=== PATIENT | female | born 1940 | race Caucasian/White ===

== ENCOUNTER 2018-12-19 19:41 | Emergency (ER) | payer MEDICARE, OTHER ==
[2018-12-19] MEDS ORDERED: Sodium Chloride 0.9% 10 ML Syringe FLUSH PRN (19:59)
[2018-12-19] MEDS ORDERED: Sodium Chloride 0.9% 2.5 ML Syringe FLUSH PRN (19:59)
[2018-12-19] MEDS ORDERED: Nitroglycerin 0.4 MG Tab.SL ONE (20:02)
--- NOTE | 2018-12-19 20:03 | EDM.PDOC ---
ED HPI GENERAL MEDICAL PROBLEM - General Chief Complaint: Chest Pain Stated Complaint: CHEST PAIN Time Seen by Provider: 12/19/18 19:51 - History of Present Illness INITIAL COMMENTS - FREE TEXT/NARRATIVE: HISTORY AND PHYSICAL: History of present illness: The patient is a healthy 77-year-old female who follows in our family practice clinic and has no significant past medical history for cardiac or pulmonary disease and takes no prescription medication and presents with chest pressure midsternal radiating to her back that is been on and off since this morning. The patient took a 325 aspirin this morning and it seemed to improve but has been coming and going through the day and it is not associated with diaphoresis shortness of breath cough fever abdominal pain nausea vomiting lightheadedness or diarrhea. The patient has been eating and drinking normally and has no flulike symptoms. The patient did get her flu shot several days ago and her arm is not discomforting. She thought maybe the flu shot triggered this discomfort. She describes it as a pressure and it is nonradiating except to her mid back and it does not go right or left. She's had no heartburn or burning-like sensation and no burping or abdominal bloating. She has not taken any over over- the-counter medications other than the aspirin this morning. She has no leg pain or swelling. She does tell nursing and me she is under a lot of stress as she is caring for an ill and she is very concerned that she left him home to come here for evaluation. The patient does tell me that the pain is only in her anterior chest and does not migrate to her abdomen. The patient currently rates her discomfort pressure as a 6-7/10 Review of systems: As per history of present illness and below otherwise all systems reviewed and negative. Past medical history: As per history of present illness and as reviewed below otherwise noncontributory. Surgical history: As per history of present illness and as reviewed below otherwise noncontributory. Social history: No reported history of drug or alcohol abuse. Family history: As per history of present illness and as reviewed below otherwise noncontributory. Physical exam: General: Well-developed well-nourished female who is nontoxic and vital signs are noted by me. She speaks freely and easily without distress or breathlessness HEENT: Atraumatic, normocephalic, pupils reactive, negative for conjunctival pallor or scleral icterus, mucous membranes moist, throat clear, neck supple, nontender, trachea midline. Lungs: Clear to auscultation, breath sounds equal bilaterally, chest nontender. Heart: S1S2, regular rate but ectopic beats are appreciated on my evaluation and no overt murmur. Heart sounds are somewhat distant. Abdomen: Soft, nondistended, nontender. Negative for masses or hepatosplenomegaly. Negative for costovertebral tenderness. Pelvis: Stable nontender. Genitourinary: Deferred. Rectal: Deferred. Extremities: Atraumatic, negative for cords or calf pain. Neurovascular unremarkable. No pedal edema or leg asymmetry Neuro: Awake, alert, oriented. Cranial nerves II through XII unremarkable. Cerebellum unremarkable. Motor and sensory unremarkable throughout. Exam nonfocal. Skin: No diaphoresis normal turgor and no overt rashes or lesions Diagnostics: EKG x 2 chest x-ray CBC CMP troponin lipase magnesium Therapeutics: IV O2 monitor, patient took a 325 mg of aspirin a small morning, nitroglycerin sublingual, NTP, Tylenol heparin bolus heparin drip per protocol Patient's chest pressure is gone after 2 sublingual nitros. Blood pressure has normalized to 161/95. The patient is now telling me she is not sure what size aspirin she took this morning so I will give her 4 baby aspirin 2035: I discussed all testing results with the patient and her son at bedside. Her blood pressure is very labile and she seems somewhat anxious about her stay here in the ED. She and her son are aware of the positive troponin and the patient is currently not having any chest pain or pressure. She is aware that she needs transferred to [facility] and she is agreeable. I will contact [facility] and organize transportation. 2045: I discussed all testing results with the patient and son at bedside as well as with Dr. Cobb at [facility] ER. He is aware of the EKG changes and the troponin and agrees that ground transport is appropriate. He would like me to do a heparin bolus and drip as this is what their dean of student services like and at this point we discussed her blood pressure of 200/96 in light of her heart rate running in the 60s and we will be watchful of that and informed EMS to just continue monitoring that. Patient is agreeable to transfer and we will get ambulance for that. Patient continues to not have any chest pain or pressure. Impression: N- STEMI NC Definitive disposition and diagnosis as appropriate pending reevaluation and review of above. Chest Pain Score (Numeric/FACES): 7 - Related Data Allergies Allergy/AdvReac Type Severity Reaction Status Date / Time No Known Allergies Allergy Verified 12/19/18 19:47 Home Meds: Home Meds . 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 ED EXAM, GENERAL - Physical Exam Exam: See Below (See dictation) Course - Vital Signs Last Recorded V/S: Last Vital Signs Temp 36.0 C 12/19/18 19:44 Pulse 66 12/19/18 20:44 Resp 20 12/19/18 19:44 BP 200/96 H 12/19/18 20:44 Pulse Ox 96 12/19/18 20:20 - Orders/Labs/Meds Orders: Active Orders 24 hr Category Date Time Status Cardiac Monitoring [RC] . DIRECTED Care 12/19/18 19:59 Active EKG Documentation Completion [RC] STAT Care 12/19/18 19:59 Active EKG Documentation Completion [RC] STAT Care 12/19/18 20:34 Active Oxygen Therapy, ED [RC] ASDIRECTED Care 12/19/18 19:59 Active Pulse Oximetry [RC] ASDIRECTED Care 12/19/18 19:59 Active PTT,PARTIAL THROMBOPLSTIN TIME [COAG] Stat Lab 12/19/18 20:55 Ordered UA RFX RONEY AND CULT IF INDIC [URIN] Stat Lab 12/19/18 19:59 Ordered Heparin Sod,Pork In 0.45% Nacl [Heparin-1/2Ns 25,000 Med 12/19/18 21:00 Ordered Units/500] 25,000 unit in 500 ml IV TITRATE Heparin Sodium Med 12/19/18 20:55 Once 5,000 units IVPUSH ONETIME ONE Nitroglycerin [Nitrostat] Med 12/19/18 19:59 Active 0.4 mg SL Q5M PRN Sodium Chloride 0.9% [Saline Flush] Med 12/19/18 19:59 Active 10 ml FLUSH ASDIRECTED PRN Sodium Chloride 0.9% [Saline Flush] Med 12/19/18 19:59 Active 2.5 ml FLUSH ASDIRECTED PRN Saline Lock Insert [OM.PC] Stat Oth 12/19/18 19:59 Ordered Medication Orders Nitroglycerin (Nitrostat) 0.4 mg SL Q5M PRN PRN Reason: Chest Pain Last Admin: 12/19/18 20:09 Dose: 0.4 mg Admin: 12/19/18 20:04 Dose: 0.4 mg Sodium Chloride (Saline Flush) 10 ml FLUSH ASDIRECTED PRN PRN Reason: Keep Vein Open Sodium Chloride (Saline Flush) 2.5 ml FLUSH ASDIRECTED PRN PRN Reason: Keep Vein Open Labs: Laboratory Tests 12/19/18 12/19/18 Range/Units 19:50 19:50 WBC 10.26 (4.0-11.0) K/uL RBC 4.70 (4.30-5.90) M/uL Hgb 14.4 (12.0-16.0) g/dL Hct 43.0 (36.0-46.0) % MCV 91.5 (80.0-98.0) fL MCH 30.6 (27.0-32.0) pg MCHC 33.5 (31.0-37.0) g/dL RDW Std Deviation 43.4 (28.0-62.0) fl RDW Coeff of Santana 13 (11.0-15.0) % Plt Count 183 (150-400) K/uL MPV 10.90 (7.40-12.00) fL Neut % (Auto) 59.4 (48.0-80.0) % Lymph % (Auto) 31.1 (16.0-40.0) % [place] % (Auto) 8.1 (0.0-15.0) % Eos % (Auto) 1.3 (0.0-7.0) % Baso % (Auto) 0.1 (0.0-1.5) % Neut # (Auto) 6.1 H (1.4-5.7) K/uL Lymph # (Auto) 3.2 H (0.6-2.4) K/uL [place] # (Auto) 0.8 (0.0-0.8) K/uL Eos # (Auto) 0.1 (0.0-0.7) K/uL Baso # (Auto) 0.0 (0.0-0.1) K/uL Nucleated RBC % 0.0 /100WBC Nucleated RBCs # 0 K/uL Sodium 142 (136-145) mmol/L Potassium 3.8 (3.5-5.1) mmol/L Chloride 105 (98-107) mmol/L Carbon Dioxide 22.0 (21.0-32.0) mmol/L BUN 21 H (7.0-18.0) mg/dL Creatinine 0.8 (0.6-1.0) mg/dL Est Cr Clr Drug Dosing 57.52 mL/min Estimated GFR (MDRD) > 60.0 ml/min Glucose 105 (74-106) mg/dL Calcium 8.8 (8.5-10.1) mg/dL Magnesium 2.1 (1.8-2.4) mg/dL Total Bilirubin 0.7 (0.2-1.0) mg/dL AST 24 (15-37) IU/L ALT 20 (14-63) IU/L Alkaline Phosphatase 57 (46-116) U/L Troponin I 1.603 H* (0.000-0.056) ng/mL Total Protein 7.1 (6.4-8.2) g/dL Albumin 3.8 (3.4-5.0) g/dL Globulin 3.3 (2.6-4.0) g/dL Albumin/Globulin Ratio 1.2 (0.9-1.6) Lipase 115 (73-393) U/L Meds: Medications Generic Name Dose Route Start Last Admin Trade Name Freq PRN Reason Stop Dose Admin Nitroglycerin 0.4 mg 12/19/18 19:59 12/19/18 20:09 Nitrostat SL 0.4 mg Q5M PRN Administration Chest Pain Sodium Chloride 10 ml 12/19/18 19:59 Saline Flush FLUSH ASDIRECTED PRN Keep Vein Open Sodium Chloride 2.5 ml 12/19/18 19:59 Saline Flush FLUSH ASDIRECTED PRN Keep Vein Open Discontinued Medications Generic Name Dose Route Start Last Admin Trade Name Robert PRN Reason Stop Dose Admin Acetaminophen 1,000 mg 12/19/18 20:26 12/19/18 20:30 Tylenol Extra Strength PO 12/19/18 20:27 1,000 mg ONETIME ONE Administration Aspirin 324 mg 12/19/18 20:38 12/19/18 20:42 Aspirin PO 12/19/18 20:39 324 mg ONETIME ONE Administration Aspirin Confirm 12/19/18 20:40 12/19/18 20:45 Aspirin Administered 12/19/18 20:41 Not Given Dose 324 mg .ROUTE .STK-MED ONE Nitroglycerin Confirm 12/19/18 20:02 12/19/18 20:07 Nitrostat Administered 12/19/18 20:03 Not Given Dose 0.4 mg .ROUTE .STK-MED ONE Nitroglycerin 0.5 gm 12/19/18 20:20 12/19/18 20:25 Nitro-Bid 2% TOP 12/19/18 20:21 0.5 gm ONETIME ONE Administration Departure - Departure Time of Disposition: 20:56 Disposition: DC/Tfer to Acute Hospital 02 Condition: Good Clinical Impression: NSTEMI (non-ST elevated myocardial infarction) - Discharge Information Referrals: PCP,Unknown [Primary Care Provider] - Forms: ED Department Discharge - My Orders Last 24 Hours: My Active Orders 12/19/18 19:59 Cardiac Monitoring [RC] . DIRECTED EKG Documentation Completion [RC] STAT Oxygen Therapy, ED [RC] ASDIRECTED Pulse Oximetry [RC] ASDIRECTED UA RFX RONEY AND CULT IF INDIC [URIN] Stat Nitroglycerin [Nitrostat] 0.4 mg SL Q5M PRN Sodium Chloride 0.9% [Saline Flush] 10 ml FLUSH ASDIRECTED PRN Sodium Chloride 0.9% [Saline Flush] 2.5 ml FLUSH ASDIRECTED PRN Saline Lock Insert [OM.PC] Stat 12/19/18 20:34 EKG Documentation Completion [RC] STAT 12/19/18 20:55 PTT,PARTIAL THROMBOPLSTIN TIME [COAG] Stat Heparin Sodium 5,000 units IVPUSH ONETIME ONE 12/19/18 21:00 Heparin Sod,Pork In 0.45% Nacl [Heparin-1/2Ns 25,000 Units/500] 25,000 unit in 500 ml IV TITRATE - Assessment/Plan Last 24 Hours: My Active Orders 12/19/18 19:59 Cardiac Monitoring [RC] . DIRECTED EKG Documentation Completion [RC] STAT Oxygen Therapy, ED [RC] ASDIRECTED Pulse Oximetry [RC] ASDIRECTED UA RFX RONEY AND CULT IF INDIC [URIN] Stat Nitroglycerin [Nitrostat] 0.4 mg SL Q5M PRN Sodium Chloride 0.9% [Saline Flush] 10 ml FLUSH ASDIRECTED PRN Sodium Chloride 0.9% [Saline Flush] 2.5 ml FLUSH ASDIRECTED PRN Saline Lock Insert [OM.PC] Stat 12/19/18 20:34 EKG Documentation Completion [RC] STAT 12/19/18 20:55 PTT,PARTIAL THROMBOPLSTIN TIME [COAG] Stat Heparin Sodium 5,000 units IVPUSH ONETIME ONE 12/19/18 21:00 Heparin Sod,Pork In 0.45% Nacl [Heparin-1/2Ns 25,000 Units/500] 25,000 unit in 500 ml IV TITRATE
[2018-12-19] MEDS: Nitroglycerin 0.4 MG Tab.SL SL PRN ×2 (20:04→20:09)
[2018-12-19] MEDS ORDERED: Nitroglycerin 2% Oint 1 GM UD Packet TOP ONE (20:20)
--- NOTE | 2018-12-19 20:24 | CR ---
indication: chest pain. Shortness of breath. Technique: Single AP portable view of the chest was obtained. Comparison: None Findings: The heart is normal in size. The lungs are clear. No infiltrate, pleural effusion, or pneumothorax identified. Impression: No acute cardiopulmonary process. Dictated by Opal Blankenship MD @ Dec 19 2018 8:22PM Signed by Dr. Opal Blankenship @ Dec 19 2018 8:23PM
[2018-12-19] MEDS ORDERED: Acetaminophen 500 MG Tab PO ONE (20:26)
[2018-12-19 20:29] LABS: BLOOD UREA NITROGEN,BUN 21 mg/dL (7.0-18.0); CHLORIDE,CL 105 mmol/L (98-107); GLUCOSE RANDOM 105 mg/dL (74-106); LIPASE 115 U/L (73-393); POTASSIUM,K 3.8 mmol/L (3.5-5.1); SODIUM,NA 142 mmol/L (136-145)
[2018-12-19] MEDS ORDERED: Aspirin 81 MG Tab.Chew PO ONE (20:38)
[2018-12-19] MEDS ORDERED: Aspirin 81 MG Tab.Chew ONE (20:40)
[2018-12-19] MEDS ORDERED: Heparin Sodium 5,000 Units/ML Vial IVPUSH ONE (20:55)
[2018-12-19] MEDS ORDERED: Heparin Sod,Pork In 0.45% Nacl 25,000 UNIT/500 ML IV.SOLN IV ONE (20:58)
[2018-12-19] MEDS ORDERED: Heparin Sod,Pork In 0.45% Nacl 25,000 UNIT/500 ML IV.SOLN IV SCH (21:00)
== END 2018-12-19 21:40 ==
LOC: MW.ED 19:41
DX: I21.4 Non-ST elevation (NSTEMI) myocardial infarction (principal)
CPT/HCPCS: 71045; 80053; 83690; 83735; 84484; 85025; 85730; 93005; 96365; 96376; 99285; A9270; J1644

== ENCOUNTER 2019-01-25 10:08 | Emergency (ER) | payer MEDICARE, OTHER ==
--- NOTE | 2019-01-25 10:39 | EDM.PDOC ---
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 Patient states the bleeding equivalent to when she used to have a menstrual cycle. Patient states the bleeding is bright red and she has had to use 1 pad since this morning. Patient states that one month ago she had one stent placed as well as a pacemaker put in. She states prior to that she was not on any medications but now is on a blood thinning medication as well as several other heart medications. Patient states she follows with Dr. Gaming at [facility] and called to get an appointment with him but was unable to get in today. Patient states she has not seen a women 's health provider in many years and who she used to see is no longer here practicing in [facility]. Patient denies any abdominal pain associated with the bleeding. Patient denies any other symptoms or concerns. Patient denies fever, chills, chest pain, shortness of breath, or cough. Denies headache, neck stiff ness, change in vision, syncope, or near syncope. Denies nausea, vomiting, abdominal pain, diarrhea, constipation, or dysuria. Has not noted any blood in urine or stool. Patient has been eating and drinking appropriately. Review of systems: As per history of present illness and below otherwise all systems reviewed and negative. Past medical history: As per history of present illness and as reviewed below otherwise noncontributory. Surgical history: As per history of present illness and as reviewed below otherwise noncontributory. Social history: See social history for further information Family history: As per history of present illness and as reviewed below otherwise noncontributory. Physical exam: General: Patient is alert, oriented, and in no acute distress. Patient sitting comfortably on exam table. HEENT: Atraumatic, normocephalic, pupils equal and reactive bilaterally, negative for conjunctival pallor or scleral icterus, mucous membranes moist, TMs normal bilaterally, throat clear, neck supple, nontender, trachea midline. No drooling or trismus noted. No meningeal signs. No hot potato voice noted. Lungs: Clear to auscultation, breath sounds equal bilaterally, chest nontender. Heart: S1S2, regular rate and rhythm without overt murmur Abdomen: Soft, nondistended, nontender. Negative for masses or hepatosplenomegaly. Negative for costovertebral tenderness. Pelvis: Stable nontender. Genitourinary: SA process area supervisor at bedside. External genitalia is grossly unremarkable. There is a moderate amount of bright red blood in the vaginal vault with a few small clots. Cervical os is closed. Rectal: Deferred. Skin: Intact, warm, dry. No lesions or rashes noted. Extremities: Atraumatic, negative for cords or calf pain. Neurovascular unremarkable. Neuro: Awake, alert, oriented. Cranial nerves II through XII unremarkable. Cerebellum unremarkable. Motor and sensory unremarkable throughout. Exam nonfocal. Notes: Dr. Greenwood verbally involved in patient care. I did call and speak to HARDWOOD FALLER on-call, Dr. Moreno and thoroughly discussed patients case. Dr. Moreno states to have patient call the clinic and establish an appointment time to be seen in the next 1-2 weeks. Voices understanding and is agreeable to plan of care. Denies any further questions or concerns at this time. Diagnostics: CBC, CMP, UA, PT/INR, PTT Therapeutics: None Prescription: Bactrim DS Impression: Abnormal vaginal bleeding Urinary tract infection Plan: 1. Take medication as prescribed. You can take Tylenol as directed for pain and discomfort. 2. Follow-up with the HARDWOOD FALLER, women's health provider as discussed. Call the clinic to establish an appointment time in the next 1-2 weeks. Return to the ED as needed and as discussed. Definitive disposition and diagnosis as appropriate pending reevaluation and review of above. - Related Data Allergies Allergy/AdvReac Type Severity Reaction Status Date / Time No Known Allergies Allergy Verified 01/25/19 10:25 Home Meds: Home Meds Acetaminophen [Acetaminophen ER] 650 mg PO Q4HR PRN 01/25/19 [History] Apixaban [Eliquis] 5 mg PO BID 01/25/19 [History] Clopidogrel Bisulfate [Plavix] 75 mg PO DAILY 01/25/19 [History] Furosemide [Lasix] 20 mg PO DAILY 01/25/19 [History] Lisinopril [Prinivil] 2.5 mg PO DAILY 01/25/19 [History] Pantoprazole Sodium 40 mg PO DAILY 01/25/19 [History] Potassium Chloride 10 meq PO DAILY 01/25/19 [History] atorvaSTATin Calcium [Atorvastatin Calcium] 80 mg PO DAILY 01/25/19 [History] Past Medical History - Past Health History Medical/Surgical History: Denies Medical/Surgical History Cardiovascular History: Reports: Pacemaker, Stents 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 ED EXAM, GENERAL - Physical Exam Exam: See Below (See dictation) Course - Vital Signs Last Recorded V/S: Last Vital Signs Temp 96.7 F 01/25/19 10:23 Pulse 96 01/25/19 10:23 Resp 18 01/25/19 10:23 BP 160/82 H 01/25/19 10:23 Pulse Ox 98 01/25/19 10:23 - Orders/Labs/Meds Orders: Active Orders 24 hr Category Date Time Status CULTURE URINE [RM] Stat Lab 01/25/19 10:35 Received Labs: Laboratory Tests 01/25/19 01/25/19 01/25/19 Range/Units 10:35 10:55 10:55 WBC 8.96 (4.0-11.0) K/uL RBC 4.32 (4.30-5.90) M/uL Hgb 13.3 (12.0-16.0) g/dL Hct 41.0 (36.0-46.0) % MCV 94.9 (80.0-98.0) fL MCH 30.8 (27.0-32.0) pg MCHC 32.4 (31.0-37.0) g/dL RDW Std Deviation 50.4 (28.0-62.0) fl RDW Coeff of Santana 15 (11.0-15.0) % Plt Count 209 (150-400) K/uL MPV 10.90 (7.40-12.00) fL Neut % (Auto) 65.3 (48.0-80.0) % Lymph % (Auto) 24.0 (16.0-40.0) % [place] % (Auto) 7.8 (0.0-15.0) % Eos % (Auto) 2.7 (0.0-7.0) % Baso % (Auto) 0.2 (0.0-1.5) % Neut # (Auto) 5.9 H (1.4-5.7) K/uL Lymph # (Auto) 2.2 (0.6-2.4) K/uL [place] # (Auto) 0.7 (0.0-0.8) K/uL Eos # (Auto) 0.2 (0.0-0.7) K/uL Baso # (Auto) 0.0 (0.0-0.1) K/uL Nucleated RBC % 0.0 /100WBC Nucleated RBCs # 0 K/uL INR APTT (18.6-31.3) SEC Sodium 142 (136-145) mmol/L Potassium 3.9 (3.5-5.1) mmol/L Chloride 106 (98-107) mmol/L Carbon Dioxide 24.3 (21.0-32.0) mmol/L BUN 18 (7.0-18.0) mg/dL Creatinine 1.0 (0.6-1.0) mg/dL Est Cr Clr Drug Dosing 45.26 mL/min Estimated GFR (MDRD) 53.3 ml/min Glucose 110 H (74-106) mg/dL Calcium 9.5 (8.5-10.1) mg/dL Total Bilirubin 1.3 H (0.2-1.0) mg/dL AST 18 (15-37) IU/L ALT 18 (14-63) IU/L Alkaline Phosphatase 68 (46-116) U/L Total Protein 8.0 (6.4-8.2) g/dL Albumin 3.8 (3.4-5.0) g/dL Globulin 4.2 H (2.6-4.0) g/dL Albumin/Globulin Ratio 0.9 (0.9-1.6) Urine Color RED Urine Appearance SLT CLOUDY Urine pH 5.5 (5.0-8.0) Ur Specific [place] 1.015 (1.001-1.035) Urine Protein 30 H (NEGATIVE) mg/dL Urine Glucose (UA) NEGATIVE (NEGATIVE) mg/dL Urine Ketones NEGATIVE (NEGATIVE) mg/dL Urine Occult Blood LARGE H (NEGATIVE) Urine Nitrite POSITIVE H (NEGATIVE) Urine Bilirubin SMALL H (NEGATIVE) Urine Ictotest NEGATIVE Urine Urobilinogen 0.2 (<2.0) EU/dL Ur Leukocyte Esterase LARGE H (NEGATIVE) Urine RBC >100 H (0-2/HPF) Urine WBC 20-30 (0-5/HPF) Ur Epithelial Cells RARE (NONE-FEW) Urine Bacteria FEW (NEGATIVE) 01/25/19 Range/Units 10:55 WBC (4.0-11.0) K/uL RBC (4.30-5.90) M/uL Hgb (12.0-16.0) g/dL Hct (36.0-46.0) % MCV (80.0-98.0) fL MCH (27.0-32.0) pg MCHC (31.0-37.0) g/dL RDW Std Deviation (28.0-62.0) fl RDW Coeff of Santana (11.0-15.0) % Plt Count (150-400) K/uL MPV (7.40-12.00) fL Neut % (Auto) (48.0-80.0) % Lymph % (Auto) (16.0-40.0) % [place] % (Auto) (0.0-15.0) % Eos % (Auto) (0.0-7.0) % Baso % (Auto) (0.0-1.5) % Neut # (Auto) (1.4-5.7) K/uL Lymph # (Auto) (0.6-2.4) K/uL [place] # (Auto) (0.0-0.8) K/uL Eos # (Auto) (0.0-0.7) K/uL Baso # (Auto) (0.0-0.1) K/uL Nucleated RBC % /100WBC Nucleated RBCs # K/uL INR 1.10 APTT 30.2 (18.6-31.3) SEC Sodium (136-145) mmol/L Potassium (3.5-5.1) mmol/L Chloride (98-107) mmol/L Carbon Dioxide (21.0-32.0) mmol/L BUN (7.0-18.0) mg/dL Creatinine (0.6-1.0) mg/dL Est Cr Clr Drug Dosing mL/min Estimated GFR (MDRD) ml/min Glucose (74-106) mg/dL Calcium (8.5-10.1) mg/dL Total Bilirubin (0.2-1.0) mg/dL AST (15-37) IU/L ALT (14-63) IU/L Alkaline Phosphatase (46-116) U/L Total Protein (6.4-8.2) g/dL Albumin (3.4-5.0) g/dL Globulin (2.6-4.0) g/dL Albumin/Globulin Ratio (0.9-1.6) Urine Color Urine Appearance Urine pH (5.0-8.0) Ur Specific [place] (1.001-1.035) Urine Protein (NEGATIVE) mg/dL Urine Glucose (UA) (NEGATIVE) mg/dL Urine Ketones (NEGATIVE) mg/dL Urine Occult Blood (NEGATIVE) Urine Nitrite (NEGATIVE) Urine Bilirubin (NEGATIVE) Urine Ictotest Urine Urobilinogen (<2.0) EU/dL Ur Leukocyte Esterase (NEGATIVE) Urine RBC (0-2/HPF) Urine WBC (0-5/HPF) Ur Epithelial Cells (NONE-FEW) Urine Bacteria (NEGATIVE) Departure - Departure Time of Disposition: 11:57 Disposition: Home, Self-Care 01 Clinical Impression: Abnormal vaginal bleeding Urinary tract infection Qualifiers: Urinary tract infection type: acute cystitis Hematuria presence: with hematuria Qualified Code(s): N30.01 - Acute cystitis with hematuria - Discharge Information Referrals: Allan Gaming MD [Primary Care Provider] - Forms: ED Department Discharge Additional Instructions: The following information is given to patients seen in the emergency department who are being discharged to home. This information is to outline your options for follow-up care. We provide all patients seen in our emergency department with a follow-up referral. The need for follow-up, as well as the timing and circumstances, are variable depending upon the specifics of your emergency department visit. If you don't have a primary care physician on staff, we will provide you with a referral. We always advise you to contact your personal physician following an emergency department visit to inform them of the circumstance of the visit and for follow-up with them and/or the need for any referrals to a consulting specialist. The emergency department will also refer you to a specialist when appropriate. This referral assures that you have the opportunity for follow-up care with a specialist. All of these measure are taken in an effort to provide you with optimal care, which includes your follow-up. Under all circumstances we always encourage you to contact your private physician who remains a resource for coordinating your care. When calling for follow-up care, please make the office aware that this follow-up is from your recent emergency room visit. If for any reason you are refused follow-up, please contact the [facility] Emergency Department at and asked to speak to the emergency department charge nurse. [facility] [address] [place], [place] [id number] [facility] [address] [place] [id number] [facility], [address]. Moreno [address], [place] [address] 1. Take medication as prescribed. You can take Tylenol as directed for pain and discomfort. 2. Follow-up with the HARDWOOD FALLER, women's health provider as discussed. Call the clinic to establish an appointment time in the next 1-2 weeks. Return to the ED as needed and as discussed. - My Orders Last 24 Hours: My Active Orders 01/25/19 10:35 CULTURE URINE [RM] Stat - Assessment/Plan Last 24 Hours: My Active Orders 01/25/19 10:35 CULTURE URINE [RM] Stat
[2019-01-25 11:52] LABS: CARBON DIOXIDE,CO2 24.3 mmol/L (21.0-32.0); POTASSIUM,K 3.9 mmol/L (3.5-5.1)
== END 2019-01-25 12:00 | disposition home or self-care (01) ==
LOC: MW.ED 10:08
DX: N93.9 Abnormal uterine and vaginal bleeding, unspecified (principal); N30.01 Acute cystitis with hematuria; Z79.899 Other long term (current) drug therapy; Z98.890 Other specified postprocedural states; Z95.0 Presence of cardiac pacemaker; Z95.5 Presence of coronary angioplasty implant and graft; Z79.01 Long term (current) use of anticoagulants
CPT/HCPCS: 36415; 80053; 81001; 85025; 85610; 85730; 87086; 99284

== ENCOUNTER 2021-06-14 20:32 | Emergency (ER) | payer MEDICARE, OTHER ==
[2021-06-14] MEDS ORDERED: Apixaban 5 MG Tab PO ONE (20:57)
[2021-06-14] MEDS ORDERED: traMADol 50 MG Tab PO ONE (21:04)
[2021-06-14 21:37] LABS: CARBON DIOXIDE,CO2 25.2 mmol/L (21.0-32.0); POTASSIUM,K 3.9 mmol/L (3.5-5.1)
== END 2021-06-14 22:36 | disposition home or self-care (01) ==
LOC: MW.ED 20:32
DX: R22.41 Localized swelling, mass and lump, right lower limb (principal); R79.1 Abnormal coagulation profile; I10 Essential (primary) hypertension; E66.9 Obesity, unspecified; Z68.30 Body mass index [BMI] 30.0-30.9, adult; Z95.0 Presence of cardiac pacemaker; Z79.899 Other long term (current) drug therapy
CPT/HCPCS: 36415; 80053; 85025; 85379; 99283; A9270; 99284

== ENCOUNTER 2024-11-04 18:18 | Emergency (ER) | payer MEDICARE | END 2024-11-04 21:26 | disposition home or self-care (01) | LOC: MW.ED 18:18 | DX: S01.01XA Laceration without foreign body of scalp, initial encounter (principal); I10 Essential (primary) hypertension; E66.9 Obesity, unspecified; Z79.01 Long term (current) use of anticoagulants; Z79.899 Other long term (current) drug therapy; W19.XXXA Unspecified fall, initial encounter | CPT/HCPCS: 12011; 70450; 72125; 73110; 73120; 99284; A9270; 12001; 99283 ==